=== PATIENT | female | born 1945 | race Caucasian/White ===

== ENCOUNTER 2022-05-20 11:02 | Emergency (ER) | payer OTHER, MEDICARE ==
[2022-05-20] MEDS ORDERED: Boostrix 0.5 ML (Tdap) VIAL (>/=7 yrs of age) ONE (11:36)
[2022-05-20] MEDS ORDERED: Lidocaine 1% (PF) 30 ML VIAL ONE (11:44)
[2022-05-20] MEDS ORDERED: Bacitracin 1 PK ONE (12:37)
== END 2022-05-20 12:53 | disposition home or self-care (01) ==
LOC: MADERS 11:02
DX: S61.052A Open bite of left thumb without damage to nail, initial encounter (principal); S81.852A Open bite, left lower leg, initial encounter; S71.151A Open bite, right thigh, initial encounter; S81.812A Laceration without foreign body, left lower leg, initial encounter; S61.012A Laceration without foreign body of left thumb without damage to nail, initial encounter; E78.00 Pure hypercholesterolemia, unspecified; Z87.891 Personal history of nicotine dependence; Z23 Encounter for immunization; W54.0XXA Bitten by dog, initial encounter
CPT/HCPCS: 12002; 90471; 90715; J2001